=== PATIENT | male | born 1950 | race African-American/Black ===

== ENCOUNTER 2017-08-17 03:50 | Inpatient (IN) | payer MEDICAID, MEDICARE, OTHER ==
[~2017-08-17] VITALS: Ht 175.3 cm; Wt 67.6 kg
[2017-08-17 05:34] LABS: BASOPHILS % 0.3 % (0.0-2.0); EOSINOPHILS % 4.5 % (0.0-5.0); HEMATOCRIT. 40.1 % (42.0-52.0); HEMOGLOBIN. 13.6 g/dL (14.0-18.0); LYMPHOCYTES % 15.4 % (20.0-50.0); MEAN CORPUSCULAR HEMOGLOBIN 30.6 pg (28.0-32.0); MEAN CORPUSCULAR VOLUME 89.9 fL (80.0-94.0); MEAN PLATELET VOLUME 7.9 fl (7.4-10.4); MONOCYTES % 8.7 % (2.0-8.0); NEUTROPHILS % 71.1 % (40.0-76.0); PLATELET 203 x1000/uL (130-400); RED BLOOD CELL COUNT 4.46 mill/uL (4.7-6.1); RED CELL DISTRIBUTION WIDTH 14.2 % (11.6-14.6)
[2017-08-17 05:38] LABS: CHLORIDE 108 mEq/L (98-107); PROTHROMBIN TIME 10.7 sec (9.4-11.6)
[2017-08-17] MEDS ORDERED: LORAZEPAM 0.5MG TABLET PO PRN (10:30)
[2017-08-17] MEDS ORDERED: HYDROCODONE/ACETAMINOPHEN 5/325MG TABLET PO PRN (10:30)
[2017-08-17] MEDS ORDERED: CLONIDINE 0.1MG TABLET PO PRN (10:30)
[2017-08-17] MEDS ORDERED: ONDANSETRON HCL 4MG/2ML VIAL IV PRN (10:30)
[2017-08-17] MEDS ORDERED: MAGNESIUM/ALUMINUM HYDROXIDE/SIMETHICONE 30ML UDC PO PRN (10:30)
[2017-08-17] MEDS ORDERED: ACETAMINOPHEN 325MG TABLET PO PRN (10:30)
[2017-08-17] MEDS ORDERED: DOCUSATE SODIUM 100MG CAPSULE PO PRN (10:30)
[2017-08-17 11:30] VITALS: BP 129/73
[2017-08-17 11:45] VITALS: BP 129/73
[2017-08-17 12:00] VITALS: BP 162/104
[2017-08-17] MEDS ORDERED: FLUT9.9S BOTHNSTRLS (12:08)
[2017-08-17] MEDS ORDERED: AMLO10TA4 PO (12:08)
[2017-08-17] MEDS ORDERED: HYDR15CR37 TP (12:08)
[2017-08-17] MEDS ORDERED: ESOM20CA PO (12:08)
[2017-08-17] MEDS ORDERED: ALBU18HF2 IH (12:08)
[2017-08-17] MEDS ORDERED: IBUP-2028 PO (12:08)
[2017-08-17] MEDS ORDERED: tylenol with codeine PO (12:08)
[2017-08-17] MEDS ORDERED: BUSP30TA2 PO (12:08)
[2017-08-17] MEDS: ENOXAPARIN 40MG/0.4ML SYR SUBCUT SCH (13:20)
[2017-08-17] MEDS: METOPROLOL TARTRATE 25MG TABLET PO SCH ×2 (13:21→22:16)
[2017-08-17] MEDS ORDERED: PERMETHRIN 5% CREAM 60GM TOP ONE (13:30)
[2017-08-17] MEDS: DIPHENHYDRAMINE 25MG CAPSULE PO PRN (14:36)
[2017-08-17 16:00] VITALS: BP 136/75
[2017-08-17 16:33] LABS: CHLORIDE 106 mEq/L (98-107)
[2017-08-17 16:42] LABS: CREATINE KINASE 77 IU/L (39-308)
[2017-08-17 16:44] LABS: CREATINE KINASE MB FRACTION 0.8 ng/mL (0.5-3.6)
[2017-08-17] MEDS: IPRATROPIUM/ALBUTEROL 0.5-3(2.5)MG/3ML NEB INH PRN (20:31)
[2017-08-17] MEDS: BUDESONIDE 0.5MG/2ML NEB HHN SCH (20:31)
[2017-08-17 20:47] VITALS: BP 137/73
[2017-08-17] MEDS: ATORVASTATIN CALCIUM 10MG TABLET PO SCH (22:15)
[2017-08-17 23:13] LABS: CREATINE KINASE 72 IU/L (39-308)
[2017-08-17 23:16] LABS: CREATINE KINASE MB FRACTION 0.6 ng/mL (0.5-3.6)
[2017-08-18] VITALS: BP 153/85
[2017-08-18] MEDS: BUDESONIDE 0.5MG/2ML NEB HHN SCH ×2 (01:00→21:00)
[2017-08-18 04:00] VITALS: BP 136/80
[2017-08-18 06:28] LABS: BASOPHILS % 0.4 % (0.0-2.0); EOSINOPHILS % 5.1 % (0.0-5.0); HEMATOCRIT. 42.8 % (42.0-52.0); HEMOGLOBIN. 14.5 g/dL (14.0-18.0); LYMPHOCYTES % 19.3 % (20.0-50.0); MEAN CORPUSCULAR HEMOGLOBIN 30.6 pg (28.0-32.0); MEAN CORPUSCULAR VOLUME 90.6 fL (80.0-94.0); MEAN PLATELET VOLUME 8.5 fl (7.4-10.4); MONOCYTES % 10.3 % (2.0-8.0); NEUTROPHILS % 64.9 % (40.0-76.0); PLATELET 242 x1000/uL (130-400); RED BLOOD CELL COUNT 4.73 mill/uL (4.7-6.1); RED CELL DISTRIBUTION WIDTH 14.3 % (11.6-14.6)
[2017-08-18 08:00] VITALS: BP 106/63
[2017-08-18] MEDS: METOPROLOL TARTRATE 25MG TABLET PO SCH ×2 (08:45→21:16)
[2017-08-18] MEDS: ASPIRIN 81MG EC TABLET PO SCH (08:46)
[2017-08-18] MEDS: IPRATROPIUM/ALBUTEROL 0.5-3(2.5)MG/3ML NEB INH PRN (09:10)
[2017-08-18 12:00] VITALS: BP 121/63
[2017-08-18] MEDS: ENOXAPARIN 40MG/0.4ML SYR SUBCUT SCH (13:58)
[2017-08-18] MEDS: DIPHENHYDRAMINE 25MG CAPSULE PO PRN (14:00)
[2017-08-18 16:00] VITALS: BP 118/79
[2017-08-18 20:00] VITALS: BP 137/84
[2017-08-18] MEDS: ATORVASTATIN CALCIUM 10MG TABLET PO SCH (21:16)
[2017-08-18] MEDS: BUSPIRONE HCL 5MG TABLET PO SCH (21:16)
[2017-08-19] VITALS: BP 124/70
[2017-08-19 04:00] VITALS: BP 136/75
[2017-08-19] MEDS: BUDESONIDE 0.5MG/2ML NEB HHN SCH (07:57)
[2017-08-19] MEDS: IPRATROPIUM/ALBUTEROL 0.5-3(2.5)MG/3ML NEB INH PRN (07:57)
[2017-08-19 08:00] VITALS: BP 122/64
[2017-08-19] MEDS: BUSPIRONE HCL 5MG TABLET PO SCH (08:08)
[2017-08-19] MEDS: ASPIRIN 81MG EC TABLET PO SCH (08:08)
[2017-08-19] MEDS: DIPHENHYDRAMINE 25MG CAPSULE PO PRN (08:10)
[2017-08-19] MEDS: METOPROLOL TARTRATE 25MG TABLET PO SCH (08:11)
[2017-08-19 12:00] VITALS: BP 122/70
[2017-08-19] MEDS: ENOXAPARIN 40MG/0.4ML SYR SUBCUT SCH (13:00)
[2017-08-19 15:13] VITALS: BP 122/70
== END 2017-08-19 15:42 | disposition home or self-care (01) | DRG 198 ==
LOC: ER 05:45 → 7WST 07:57 → ENRESERV 10:18
PROVIDERS: ADMIT Internal Medicine; ATTEND Internal Medicine
DX: I20.9 Angina pectoris, unspecified (principal); J44.9 Chronic obstructive pulmonary disease, unspecified; I10 Essential (primary) hypertension; F41.9 Anxiety disorder, unspecified; E78.5 Hyperlipidemia, unspecified; Z96.642 Presence of left artificial hip joint; F17.210 Nicotine dependence, cigarettes, uncomplicated; Z79.82 Long term (current) use of aspirin; Z79.899 Other long term (current) drug therapy; Z79.51 Long term (current) use of inhaled steroids
CPT/HCPCS: 36415; 71045; 80048; 80053; 80061; 82550; 82553; 83735; 83880; 84443; 84484; 85025; 85610; 93005; 93306; 93970; 94640; 99285; G0482; J1650; J7620; J7626; Q0163